=== PATIENT | female | born 1965 | race Caucasian/White ===

== ENCOUNTER 2022-10-04 14:39 | Emergency (ER) | payer OTHER ==
[~2022-10-04] VITALS: Ht 157.5 cm; Wt 70.0 kg
[2022-10-04] MEDS ORDERED: KETOROLAC 60MG/2ML VIAL IM ONE (16:15)
[2022-10-04] MEDS ORDERED: HYDROCODONE/ACETAMINOPHEN 10/325MG TABLET PO ONE (16:15)
[2022-10-04 18:21] LABS: BASOPHILS % 0.5 % (0.0-2.0); EOSINOPHILS % 1.2 % (0.0-5.0); HEMATOCRIT. 32.8 % (36.0-48.0); HEMOGLOBIN. 10.8 g/dL (12.0-16.0); LYMPHOCYTES % 15.3 % (20.0-50.0); MEAN CORPUSCULAR VOLUME 78.7 fL (81.0-99.0); MEAN PLATELET VOLUME 7.5 fl (7.4-10.4); MONOCYTES % 3.7 % (2.0-8.0); NEUTROPHILS % 79.3 % (40.0-76.0); PLATELET 265 x1000/uL (130-400); RED BLOOD CELL COUNT 4.17 mill/uL (4.2-5.4)
[2022-10-04 18:30] LABS: CHLORIDE 100 mEq/L (98-107)
[2022-10-04 18:39] LABS: INR 0.9; PROTHROMBIN TIME 10.2 sec (9.6-11.0)
[2022-10-04 21:31] VITALS: BP 132/66
== END 2022-10-04 22:00 | disposition short-term general hospital (02) ==
LOC: ER 14:39 → CANBEDREQ 19:11 → ER 22:00
DX: S82.452A Displaced comminuted fracture of shaft of left fibula, initial encounter for closed fracture (principal); S82.192A Other fracture of upper end of left tibia, initial encounter for closed fracture; E11.9 Type 2 diabetes mellitus without complications; I10 Essential (primary) hypertension; Z88.0 Allergy status to penicillin; W01.0XXA Fall on same level from slipping, tripping and stumbling without subsequent striking against object, initial encounter; Y93.89 Activity, other specified; Y92.013 Bedroom of single-family (private) house as the place of occurrence of the external cause
CPT/HCPCS: 29505; 36415; 73560; 73590; 80053; 85025; 85610; 86850; 86900; 86901; 87426; 96372; 99284; C9803; J1885; Z7610

== ENCOUNTER 2023-10-09 18:20 | Emergency (ER) | payer OTHER ==
[~2023-10-09] VITALS: Ht 152.4 cm; Wt 80.0 kg
[2023-10-09 18:30] VITALS: O2SAT 100
[2023-10-09] MEDS ORDERED: NAPR-681 MT (19:38)
[2023-10-09] MEDS: HYDROCODONE/ACETAMINOPHEN 5/325MG TABLET PO STA (20:03)
[2023-10-09] MEDS: MORPHINE SULFATE 4 MG/ML CPJ (NOT FOR IM USE) IV ONE (20:04)
[2023-10-09 20:24] VITALS: BP 140/70; PULSE 95; RESP 16; TEMP 97.9
== END 2023-10-09 20:26 | disposition home or self-care (01) ==
LOC: ER 18:20
DX: M79.605 Pain in left leg (principal); E11.9 Type 2 diabetes mellitus without complications; I10 Essential (primary) hypertension; Z88.0 Allergy status to penicillin; Z87.81 Personal history of (healed) traumatic fracture
CPT/HCPCS: 73560; 73590; 96374; 99284; J2270; Z7610